=== PATIENT | male | born 1970 | race Caucasian/White ===

== ENCOUNTER 2019-12-26 11:17 | Emergency (ER) | payer SELFPAY ==
[~2019-12-26] VITALS: Ht 170.2 cm; Wt 114.5 kg
[~2019-12-26 11:17] MED LIST: ADDERALL10 MG PO; AMLODIPINE2.5 MG; APRISO0.375 GM PO; BACTRIM DS1 TAB PO; BENTYL20 MG PO; BUSPIRONE10 MG PO; CEPHALEXIN500 MG PO; CIMZIA200 MG/ML SC; CIPRO500 MG OR; CIPROFLOXACN500 MG PO; FISH OIL1000 MG PO; LASIX 20 MG TAB20 MG PO; LISINOP/HCTZ1 TA1 PO; LOMOTIL2.5 MG PO; LORTAB 1010 MG PO; LORTAB 7.5 OR; LOVENOX100 MG/1 M; METHADONE40 MG PO; NO HOME MEDS; PERCOCET 5/325M1 TAB OR; PREDNISONE10 MG PO; XANAX0.5 MG PO
[2019-12-26] MEDS ORDERED: BACTRIM DS1 TAB PO (12:46)
[2019-12-26 13:39] VITALS: BP 131/94
== END 2019-12-26 13:39 | disposition home or self-care (01) | DRG 603 ==
LOC: ED 11:17
PROC: 0H96XZZ Drainage of Back Skin, External Approach (ICD-10-PCS; principal; 2019-12-26)
DX: L02.212 Cutaneous abscess of back [any part, except buttock and flank] (principal); I10 Essential (primary) hypertension

== ENCOUNTER 2019-12-28 11:54 | Emergency (ER) | payer SELFPAY ==
[~2019-12-28] VITALS: Ht 170.2 cm; Wt 69.1 kg
[2019-12-28] MEDS ORDERED: HUMIRA20 MG/0.2 SC (12:35)
[2019-12-28] MEDS ORDERED: MESALAMINE DR400 MG PO (12:36)
[2019-12-28] MEDS ORDERED: HYDROCHLOROT25 MG PO (12:37)
[2019-12-28] MEDS ORDERED: PROTONIX20 M1 PO (12:38)
[2019-12-28 13:59] VITALS: BP 119/80
== END 2019-12-28 13:59 | disposition home or self-care (01) | DRG 951 ==
LOC: ED 11:54
DX: Z48.01 Encounter for change or removal of surgical wound dressing (principal); I10 Essential (primary) hypertension

== ENCOUNTER 2021-08-27 10:49 | Emergency (ER) | payer MEDICAID ==
[2021-08-27] VITALS (8 sets, daily range): BP systolic 108–155; BP diastolic 67–112
[~2021-08-27] VITALS: Ht 170.2 cm; Wt 110.0 kg
[~2021-08-27 10:49] MED LIST changes: +HUMIRA20 MG/0.2 SC; +HYDROCHLOROT25 MG PO; +MESALAMINE DR400 MG PO; +PROTONIX20 M1 PO
[2021-08-27 11:35] LABS: HEMATOCRIT 58.2 % (39.0-50.0); HEMOGLOBIN 19.1 g/dl (14.0-18.0); IMMATURE GRANULOCYTES 0.8 % (0.0-5.0); MEAN CELL VOLUME 91.2 fL CALC (80.0-100.0); MEAN CORPUSCULAR HGB 29.9 pG CALC (26.0-32.0); MEAN CORPUSCULAR HGB CONC 32.8 g/dL CAL (32.0-36.0); NEUT# 7.85 thou/uL (1.82-7.42); RED BLOOD COUNT 6.38 mill/uL (4.70-6.10); RED CELL DISTRI WIDTH 12.7 % (11.5-15.5)
[2021-08-27 11:39] LABS: GFR 59 ML/MIN (>=60 (CALC)); GFR FOR AFR.AMER. > 60 ML/MIN (>=60 (CALC))
[2021-08-27 11:54] LABS: ALKALINE PHOSPHATASE 115 u/l (38-126); ANION GAP 14 (6-22 (CALC)); BUN 15 mg/dL (9-20); BUN/CREATININE RATIO 12 (12-20 (CALC)); CARBON DIOXIDE 26 mmol/l (22-30); CHLORIDE 101 mmol/l (95-108); CREATININE 1.2 mg/dL (0.7-1.3); GFR > 60 ML/MIN (>=60 (CALC)); GFR FOR AFR.AMER. > 60 ML/MIN (>=60 (CALC)); POTASSIUM 4.3 mmol/l (3.5-5.1); SODIUM 138 mmol/l (137-146); TOTAL PROTEIN 6.9 g/dL (6.3-8.2)
[2021-08-27 11:58] LABS: BILIRUBIN, TOTAL 0.4 mg/dL (0.0-1.4); SGOT/AST 49 u/l (17-59)
== END 2021-08-27 16:21 | disposition short-term general hospital (02) ==
LOC: ED 10:49
PROVIDERS: Family Medicine
DX: I20.0 Unstable angina (principal); I10 Essential (primary) hypertension; K50.90 Crohn's disease, unspecified, without complications; Z20.822 Contact with and (suspected) exposure to COVID-19
CPT/HCPCS: J1650; Q9967